=== PATIENT | male | born 1960 | race Caucasian/White ===

== ENCOUNTER 2017-04-24 03:07 | Inpatient (IN) | payer MEDICARE ==
[2017-04-24] VITALS (11 sets, daily range): BP systolic 90–132; BP diastolic 55–83; Ht 177.8 cm; Wt 93.2 kg
[~2017-04-24] VITALS: Ht 177.8 cm; Wt 93.2 kg
[~2017-04-24 03:07] MED LIST: AMITRIPTYLINE H50 MG; AMITRIPTYLINE100 MG PO; BUSPAR10 MG; FISH OIL 1,0001 CA1 PO; FLEXERIL10 MG; FLOMAX0.4 MG; FLOMAX0.4 MG PO; FLUTICASONE PRO16 GM NASAL; IPRAT-ALBUT 0.5-3 ML UPD; OMEPRAZOLE20 M1 PO; OXYCONTIN15 MG PO; PHENERGAN25 MG RC; PRAVACHOL40 MG PO; PROTONIX40 MG; PULMICORT180 MCG/AE INH; RYBIX ODT50 MG PO; SYNTHROID50 MCG PO; TESTOSTERONE INJ; VALIUM5 MG PO; VENTOLIN HFA18 GM INH; WELLBUTRIN SR150 MG
[2017-04-24 03:45] LABS: BASOPHILS 0.2 % (0-2); EOSINOPHILS 4.1 % (0-7); HEMOGLOBIN 11.1 g/dL (13.5-17.5); IMMATURE GRANULOCYTES 0.1 % (0-5); MCH 27.6 pg (26.0-34.0); MCHC 30.8 g/dL (31.0-37.0); MCV 89.6 fL (80.0-100.0); MEAN PLATELET VOLUME 9.3 fL (7.4-10.4); MONOCYTES 5.5 % (2-11); NEUTROPHILS 79.1 % (40-80); PLATELET COUNT 272 10x3/uL (130-400); RBC 4.02 10x6/uL (4.20-6.10); RDW 14.3 % (11.5-14.5); WBC 10.1 10x3/uL (4.8-10.8)
[2017-04-24 04:01] LABS: ALBUMIN 3.4 g/dL (3.4-5.0); ALKALINE PHOSPHATASE 99 U/L (46-116); ALT (SGPT) 18 U/L (10-68); BILIRUBIN - TOTAL 0.17 mg/dL (0.2-1.3); CALC OSMOLALITY 275 mosm/kg (275-300); CALCIUM 8.9 mg/dL (8.5-10.1); CARBON DIOXIDE 31.9 mmol/L (21.0-32.0); CHLORIDE - SERUM 99 mmol/L (98-107); CREATININE - SERUM 1.1 mg/dL (0.6-1.3); GLUCOSE 98 mg/dL (74-106); POTASSIUM - SERUM 4.1 mmol/L (3.5-5.1); PROTEIN - SERUM 7.4 g/dL (6.4-8.2); SODIUM 137 mmol/L (136-145); UREA NITROGEN 19 mg/dL (7-18); eGFR NON AFRICAN AMERICAN 73 mL/min (90-120)
[2017-04-24 04:05] LABS: CREATINE KINASE 84 UL (21-232); T4 THYROXIN - FREE 1.02 ng/dL (0.76-1.46); T4 THYROXINE 7.8 ug/dL (4.7-13.3)
[2017-04-24 04:07] LABS: TROPONIN-I < 0.017 ng/mL (0.000-0.060)
[2017-04-24 05:24] LABS: APTT 24.8 SECONDS (22.8-39.4)
--- NOTE | 2017-04-24 07:30 | NUR ---
AWAKE AND ALERT. ORIENTED X3. C/O LEFT LEG. WILL MONITOR. LUNGS ARE CLEAR BILATERALLY, NO COUGH NOTED. SKIN IS INTACT WITHOUT REDNESS. NEURO CHECK TO LEFT LEG WNL. IV TO LEFT AC IS PATENT WITHOUT REDNESS AT INSERTION SITE. DENIES NEEDS. CONSENTS COMPLETED AND DISCUSSED REASON FOR NPO STATUS. ALL QUESTIONS ANSWERED.
--- NOTE | 2017-04-24 08:00 | NUR ---
OFF UNIT VIA BED FOR CT.
--- NOTE | 2017-04-24 08:20 | NUR ---
RETURNED FROM CT SCAN. REQUESTED AND GIVEN 1MG DILAUDID SLOW IVP FOR C/O LEFT LEG PAIN LEVEL 10. WILL MONITOR.
--- NOTE | 2017-04-24 13:01 | NUR ---
REQUESTED AND GIVEN 1MG DILAUDID SLOW IVP FOR C/O LEFT LEG PAIN LEVEL 7. WILL MONITOR.
--- NOTE | 2017-04-24 15:10 | NUR ---
OFF UNIT VIA BED FOR SURGERY.
[2017-04-25] VITALS: BP 95/56
[2017-04-25 04:00] VITALS: BP 92/53
[2017-04-25 05:45] LABS: BASOPHILS 0.2 % (0-2); EOSINOPHILS 4.1 % (0-7); HEMATOCRIT 29.2 % (42.0-54.0); HEMOGLOBIN 8.9 g/dL (13.5-17.5); IMMATURE GRANULOCYTES 0.1 % (0-5); LYMPHOCYTES 7.7 % (15-50); MCH 27.5 pg (26.0-34.0); MCHC 30.5 g/dL (31.0-37.0); MCV 90.1 fL (80.0-100.0); MEAN PLATELET VOLUME 9.7 fL (7.4-10.4); MONOCYTES 10.6 % (2-11); NEUTROPHILS 77.3 % (40-80); PLATELET COUNT 260 10x3/uL (130-400); RBC 3.24 10x6/uL (4.20-6.10); RDW 15.1 % (11.5-14.5); WBC 9.2 10x3/uL (4.8-10.8)
[2017-04-25 06:11] LABS: ALBUMIN 2.6 g/dL (3.4-5.0); ALKALINE PHOSPHATASE 72 U/L (46-116); BILIRUBIN - TOTAL 0.45 mg/dL (0.2-1.3); CALCIUM 7.7 mg/dL (8.5-10.1); CARBON DIOXIDE 32.1 mmol/L (21.0-32.0); CHLORIDE - SERUM 104 mmol/L (98-107); CREATININE - SERUM 0.9 mg/dL (0.6-1.3); GLUCOSE 106 mg/dL (74-106); POTASSIUM - SERUM 4.1 mmol/L (3.5-5.1); SODIUM 139 mmol/L (136-145); eGFR NON AFRICAN AMERICAN > 90 mL/min (90-120)
[2017-04-25 06:22] LABS: ALT (SGPT) 12 U/L (10-68); CALC OSMOLALITY 277 mosm/kg (275-300); UREA NITROGEN 12 mg/dL (7-18)
--- NOTE | 2017-04-25 07:30 | NUR ---
AWAKE AND ALERT. ORIENTED X3. NO C/O AT THIS TIME. LUNGS ARE CLEAR BILATERALLY,NO COUGH NOTED. SKIN IS INTACT WITHOUT REDNESS EXCEPT INCISIONS TO LEFT LEG WHICH HAVE DRY INTACT DRESSINGS IN PLACE. IV TO RIGHT AC IS PATENET WITHOUT REDNESS AT ISNERTION SITE. DENIES NEEDS.
[2017-04-25 09:20] VITALS: BP 90/52
--- NOTE | 2017-04-25 09:45 | NUR ---
REQUESTED AND GIVEN 10MG OXY IR PO FOR C/O LEFT LEG PAIN LEVEL 9. WILL MONITOR.
--- NOTE | 2017-04-25 12:00 | NUR ---
REQUESTED AND GIVEN 50 MG ATARAX PO FOR C/O LEFT LEG PAIN LEVEL 7. WILL MONIOTR. LUNCH SERVED IN ROOM. FEEDS SELF.
[2017-04-25 13:06] VITALS: BP 95/56
--- NOTE | 2017-04-25 13:55 | NUR ---
REQUESTED AND GIVEN ONE OXY IR PO FOR C/O PAIN LEVEL 7 PRIOR TO THERAPY. WILL MONITOR.
--- NOTE | 2017-04-25 15:45 | NUR ---
RESTING QUIETLY IN BED. DENIES NEEDS. REPORTS VERY LITTLE PAIN RELIEF FROM OXY IR. WILL CONTINUE TO MONITOR.
[2017-04-25 16:55] VITALS: BP 109/62
--- NOTE | 2017-04-25 18:30 | NUR ---
REFUSED TO EAT SUPPER. STATED HE WAS HURING TO BAD TO EAT. GIVEN 1GM TYLENOL IV FOR PAIN MANAGEMENT. WILL MONITOR.
--- NOTE | 2017-04-25 18:39 | NUR ---
REQUESTED AND GIVNE 5MG OXY IR PO FOR C/O LEFT LEG PAIN LEVEL . WILL MONITOR.
[2017-04-25 20:00] VITALS: BP 105/57
--- NOTE | 2017-04-25 20:10 | NUR ---
PATIENT RESTING IN BED AND REQUESTED PAIN MEDS WHEN DUE. PT DENIES OTHER NEEDS AT THIS TIME. BED IN LOWEST POSITION AND CALL LIGHT WITHIN REACH. ENCOURAGED THE PATIENT TO CALL IF HE HAS NEEDS.
--- NOTE | 2017-04-25 20:16 | NUR ---
PATIENT STATED HE TAKES 200MG OF ELAVIL AT HOME
[2017-04-26] VITALS: BP 96/53
[2017-04-26 04:00] VITALS: BP 106/57
[2017-04-26 05:24] LABS: BASOPHILS 0.2 % (0-2); EOSINOPHILS 3.3 % (0-7); HEMATOCRIT 28.6 % (42.0-54.0); HEMOGLOBIN 8.8 g/dL (13.5-17.5); IMMATURE GRANULOCYTES 0.1 % (0-5); LYMPHOCYTES 10.5 % (15-50); MCH 27.6 pg (26.0-34.0); MCHC 30.8 g/dL (31.0-37.0); MCV 89.7 fL (80.0-100.0); MEAN PLATELET VOLUME 9.7 fL (7.4-10.4); MONOCYTES 10.5 % (2-11); NEUTROPHILS 75.4 % (40-80); PLATELET COUNT 259 10x3/uL (130-400); RBC 3.19 10x6/uL (4.20-6.10); WBC 8.2 10x3/uL (4.8-10.8)
[2017-04-26 05:34] LABS: APTT 35.7 SECONDS (22.8-39.4); INR 1.3 (0.85-1.17)
[2017-04-26 05:50] LABS: CALC OSMOLALITY 282 mosm/kg (275-300); CALCIUM 8.1 mg/dL (8.5-10.1); CARBON DIOXIDE 33.5 mmol/L (21.0-32.0); CHLORIDE - SERUM 103 mmol/L (98-107); CREATININE - SERUM 0.8 mg/dL (0.6-1.3); POTASSIUM - SERUM 3.6 mmol/L (3.5-5.1); SODIUM 141 mmol/L (136-145); UREA NITROGEN 10 mg/dL (7-18); eGFR NON AFRICAN AMERICAN > 90 mL/min (90-120)
[2017-04-26 06:00] LABS: GLUCOSE 161 mg/dL (74-106)
[2017-04-26 08:14] VITALS: BP 98/57
--- NOTE | 2017-04-26 08:38 | OP ---
PATIENT NAME: HERB MOTA MEDICAL RECORD: [id number] :58 LOCATION:[facility]2212 ADMISSION DATE:04/24/17 SURGEON: MARCELINO KNOX DO DATE OF OPERATION: 04/24/2017 PROCEDURE PERFORMED: Left tibia intramedullary nailing. PREOPERATIVE DIAGNOSIS: Closed left tibia and fibula fracture. POSTOPERATIVE DIAGNOSIS: Closed left tibia and fibula fracture. INDICATIONS: Mr. Mota is a 56-year-old male who got up and had syncopal episode and twisted his left leg last night and sustained a distal tibial shaft as well as a distal fibula fracture. He was taken to the ER and I was consulted to see him. He was put on the surgery schedule for today. The risks and benefits of the procedure were discussed with him as well as the surgery itself was explained to him. He consented to the procedure. DESCRIPTION OF PROCEDURE: The patient was taken to the operative suite, laid in supine position, given 2 grams of Ancef preoperatively and the left lower extremity was prepped and draped in sterile fashion. Once this was done, a timeout was performed. Everyone was in agreeance to correct side, site, and patient and then the procedure commenced. The reduction of the fracture was attempted with clamps, which was achieved, but did not hold and then we started at the knee, incision made just inferior to the patella down to the patellar tendon. The peritenon was divided and off the patellar tendon. The patellar tendon was incised and Weitlaner was used to open it up. Some of the fat pad was removed at that time and the starting point was gained on the proximal tibia. Once a good starting point was made, the opening reamer was entered into the tibia and then the guidepin was placed on the tibial shaft as the reduction was held with the knee in flexion with a triangle as well. This was done and then reaming commenced with a 9 up to an 11.5 and a 10.5 nail by 360 mm was passed from the tibia. This was all done under x-ray confirming that the reduction was not lost in the coronal and sagittal planes. Once this was done, attention was then drawn to the proximal tibia where the 2 locking screws were placed from lateral to medial. Then, the jig was removed and set screw was set prior to the jig removing. Then, the jig was removed and the triangle was removed and a bump was placed under the leg and then perfect circles were made distally and 2 screws were placed from medial to lateral distally in the tibia; one was 38, the other was 44. Once this was completed, the wounds were irrigated thoroughly and the knee joint was irrigated with over 300 mL of normal saline and then the patellar tendon was closed with 0 Vicryl in a running locking stitch as well as the peritenon with inverted running stitch. Once this was completed, the skin was closed with 2-0 Vicryl in an inverted interrupted fashion and the skin was closed with 4-0 Monocryl in a horizontal mattress fashion. The locking screw sites were closed with 2-0 Vicryl in an inverted interrupted fashion and 4-0 Monocryl in a horizontal mattress. The total blood loss approximately 300 mL. A splint was then applied to the left lower extremity prior to the patient awakening. The patient was then awakened and taken to recovery in stable condition. TRANSINT:[id number] Voice Confirmation ID: [id number] DOCUMENT ID: [id number] OPERATIVE REPORT [id number] HERB MOTA MICHAEL D, DO at 0838 CC: [id number] DICTATION DATE: 04/24/171851 INVENTORY CHECKER: 04/24/17 2304 ADM IN [address] [place] [address]
[2017-04-26] MEDS ORDERED: ATARAX 25 MG TA25 MG PO (08:45)
[2017-04-26] MEDS ORDERED: OXYCODONE HCL5 MG PO (08:45)
[2017-04-26] MEDS ORDERED: ELIQUIS2.5 MG PO (08:45)
[2017-04-26 12:13] VITALS: BP 91/70
--- NOTE | 2017-04-26 13:54 | NUR ---
Patient Name: HERB DENNEY Admission Status: ER Accout number: [id number] Admission Date: 04-24-2017 : 1960 Admission Diagnosis:OTH FRACTURE OF LOWER END OF LEFT TIBIA, INIT FOR CLOS Attending: Tashi Collins Current LOS: 2 Anticipated DC Date: 04-26-2017 Planned Disposition: Home Primary Insurance: MEDICARE A & B Discharge Planning Comments: PATIENT FOR DISCHARGE TO HOME TODAY. DR VILLARREAL SPOKE WITH THE CURRENCY EXAMINER. DISCUSSED NASAL O2 AT 3/4 LITERS, PULSE 113-124 AND TEMP 100 AT 1655 04/25/17. FEELS HE CAN BE SAFELY DISCHARGED TO HOME. STATED HE WOULD ORDER H/H TO FOLLOW. PATIENT HAS NASAL O2 FROM [facility] AT HOME. HIS O2 IS USUALLY AT 3/L. DR VILLARREAL ALSO ORDERED A WALKER PER PHYSICAL THERAPY'S RECOMMENDATION. KENDALL CALLED [facility]. SPOKE WITH THE ON-CALL DAR. FAXED MD ORDER, FACE SHEET AND OP REPORT. WALKER TO BE DELIVERED TO THE PATIENT'S ROOM. CM SPOKE WITH THE PATIENT. HE REFUSED HOME HEALTH AT THIS TIME. HE STATES HE WILL BE STAYING WITH FRIENDS FOR A FEW DAYS. CM DISCUSSED HOW TO OBTAIN HOME HEALTH IF HE CHANGES HIS MIND. WALKER DELIVERED TO THE BEDSIDE. PATIENT IS IN PAIN. WANTED TO SPEAK WITH HIS NURSE. DOES NOT WISH TO CONTINUE ASSESSMENT AT THIS TIME. Etl [employer] Developer: Blanche Mack
--- NOTE | 2017-04-26 14:28 | DS ---
PATIENT:HERB DENNEY :58 MEDICAL RECORD: [id number] DISCHARGE SUMMARY ADMISSION DATE: 04/24/17 DISCHARGE DATE: DATE OF ADMISSION: 04/24/2017 DATE OF DISCHARGE: 04/26/2017 ADMISSION DIAGNOSIS: Closed left tib-fib fracture. DISCHARGE DIAGNOSIS: Closed left tib-fib fracture. CONSULTS: Luis Alfredo Simeon DO, orthopedics. PROCEDURES: Open reduction and internal fixation of left tibia. HOSPITAL COURSE: The patient had an uneventful hospital course. He was admitted through the Emergency Room and taken to surgery. He has history of underlying COPD with supportive care for this. He has been cleared for discharge with boot and walker, toe touching by orthopedics. The patient is anxious to go home. social media manager consulted for home health and walker. PHYSICAL EXAMINATION: VITAL SIGNS: On discharge, temperature 98.1, heart rate 119, respirations 20, O2 sat is 93%, and blood pressure 98/57. GENERAL: Alert, oriented, and anxious for discharge. HEART: Regular. LUNGS: Clear. ABDOMEN: Soft. EXTREMITIES: Present times 4. NEUROLOGIC: Intact. SKIN: Warm and dry. No rash. DISCHARGE INSTRUCTIONS: The patient will follow up with Dr. Collins within the next 10 days. Follow up with orthopedics as scheduled. MEDICATIONS: Per med rec. TRANSINT:[id number] Voice Confirmation ID: [id number] DOCUMENT ID: [id number] CONSTANCE VILLARREAL DO at 1428 CC: [id number] DICTATION DATE: 04/26/17 1209 ORTHOPHOTO TECH/DRAFTSMAN: 04/26/17 1231 ADM IN [id number] [place] [address]
--- NOTE | 2017-04-26 17:55 | NUR ---
DISCHARGE INSTRUCTIONS DISCUSSED AT THIS TIME. FAMILY FRIENDS, MORGAN TIRADO, AT BEDSIDE. NO QUESTIONS OR CONCERNS VOICED. PT UNABLE TO SIGN DISCHARGE PAPERS. VERBAL CONSENT GIVEN TO FAMILY FRIEND, MORGAN TIRADO, TO SIGN. PIV TO L AC DC'D WITH CATHETER INTACT. PRESSURE AND DRESSING APPLIED. ESCORTED OUT VIA WC.
== END 2017-04-26 17:56 | disposition home or self-care (01) | DRG 494 ==
LOC: D.ER 03:07 → D.MS 05:03
PROVIDERS: Emergency Medicine; Family Medicine; Orthopaedic Surgery; ADMIT Family Medicine
PROC: 0QSH06Z Reposition Left Tibia with Intramedullary Internal Fixation Device, Open Approach (ICD-10-PCS; principal; 2017-04-24 11:30)
DX: S82.392A Other fracture of lower end of left tibia, initial encounter for closed fracture (principal); S82.302A Unspecified fracture of lower end of left tibia, initial encounter for closed fracture; W06.XXXA Fall from bed, initial encounter; J44.9 Chronic obstructive pulmonary disease, unspecified; F41.8 Other specified anxiety disorders; G89.29 Other chronic pain

== ENCOUNTER 2017-05-14 15:02 | Inpatient (IN) | payer MEDICARE ==
[~2017-05-14] VITALS: Ht 177.8 cm; Wt 85.6 kg
[~2017-05-14 15:02] MED LIST changes: +ATARAX 25 MG TA25 MG PO; +ELIQUIS2.5 MG PO; +OXYCODONE HCL5 MG PO
[2017-05-14 15:43] LABS: BASOPHILS 0.2 % (0-2); EOSINOPHILS 0.3 % (0-7); HEMATOCRIT 30.2 % (42.0-54.0); HEMOGLOBIN 8.7 g/dL (13.5-17.5); IMMATURE GRANULOCYTES 0.2 % (0-5); MCHC 28.8 g/dL (31.0-37.0); MCV 90.1 fL (80.0-100.0); MEAN PLATELET VOLUME 9.4 fL (7.4-10.4); MONOCYTES 5.8 % (2-11); NEUTROPHILS 89.5 % (40-80); PLATELET COUNT 507 10x3/uL (130-400); RBC 3.35 10x6/uL (4.20-6.10); RDW 16.9 % (11.5-14.5); WBC 8.9 10x3/uL (4.8-10.8)
[2017-05-14 15:54] LABS: APTT 31.6 SECONDS (22.8-39.4); INR 1.27 (0.85-1.17); PROTIME 15.4 SECONDS (11.6-15.0)
[2017-05-14 15:58] LABS: ALBUMIN 2.5 g/dL (3.4-5.0); ALKALINE PHOSPHATASE 97 U/L (46-116); ALT (SGPT) 18 U/L (10-68); BILIRUBIN - TOTAL 0.39 mg/dL (0.2-1.3); CALC OSMOLALITY 272 mosm/kg (275-300); CALCIUM 8.6 mg/dL (8.5-10.1); CARBON DIOXIDE 36.6 mmol/L (21.0-32.0); CHLORIDE - SERUM 98 mmol/L (98-107); CREATININE - SERUM 0.9 mg/dL (0.6-1.3); POTASSIUM - SERUM 4.5 mmol/L (3.5-5.1); PROTEIN - SERUM 6.9 g/dL (6.4-8.2); SODIUM 136 mmol/L (136-145); UREA NITROGEN 15 mg/dL (7-18); eGFR NON AFRICAN AMERICAN > 90 mL/min (90-120)
[2017-05-14 15:59] LABS: GLUCOSE 101 mg/dL (74-106)
[2017-05-14 16:00] LABS: TROPONIN-I < 0.017 ng/mL (0.000-0.060)
--- NOTE | 2017-05-14 18:23 | NUR ---
REPORT REC'D FROM ER. ROOM READY, WILL AWAIT PTS ARRIVAL.
[2017-05-14 20:48] VITALS: BP 101/62
--- NOTE | 2017-05-14 23:58 | NUR ---
PT ASSISTED TO RESTROOM. UPON RETURN FROM RESTROOM PT COMPLAINED OF SOB. PULSE OX WAS 73 PULSE WAS 121. O2 BUMPED UP TO 7L/MIN O2 SATURATION INCREASED TO 84. PT PLACED ON OXIMIZER AT 6L/MIN PT SATURATION INCREASED TO 95. PT TAKEN OFF OXIMIZER AND CANNULA REPLACED. 02 SATURATION REMAINED AT 95% ON 4L/MIN.
[2017-05-15 00:33] VITALS: BP 103/64
--- NOTE | 2017-05-15 03:18 | NUR ---
COMMODITY DIRECTOR AT BEDSIDE TO OBTAIN VITALS, CALL LIGHT IN REACH. WILL CONTINUE WITH PLAN OF CARE.
--- NOTE | 2017-05-15 03:56 | NUR ---
PT IN BED RESTING. WILL CONT TO MONITOR
[2017-05-15 04:33] VITALS: BP 120/81
[2017-05-15 05:22] LABS: BASOPHILS 0.3 % (0-2); EOSINOPHILS 2.9 % (0-7); HEMATOCRIT 28.4 % (42.0-54.0); IMMATURE GRANULOCYTES 0.1 % (0-5); LYMPHOCYTES 10.7 % (15-50); MCH 25.4 pg (26.0-34.0); MCHC 28.2 g/dL (31.0-37.0); MCV 90.2 fL (80.0-100.0); MEAN PLATELET VOLUME 9.5 fL (7.4-10.4); MONOCYTES 11.2 % (2-11); NEUTROPHILS 74.8 % (40-80); PLATELET COUNT 528 10x3/uL (130-400); RBC 3.15 10x6/uL (4.20-6.10); RDW 17.2 % (11.5-14.5); WBC 9.7 10x3/uL (4.8-10.8)
[2017-05-15 05:44] LABS: ALBUMIN 2.4 g/dL (3.4-5.0); ALKALINE PHOSPHATASE 96 U/L (46-116); ALT (SGPT) 20 U/L (10-68); CALC OSMOLALITY 278 mosm/kg (275-300); CALCIUM 8.5 mg/dL (8.5-10.1); CARBON DIOXIDE 37.3 mmol/L (21.0-32.0); CHLORIDE - SERUM 99 mmol/L (98-107); CKMB 0.7 U/L (0.0-3.6); GLUCOSE 97 mg/dL (74-106); MAGNESIUM - SERUM 1.9 mg/dL (1.8-2.4); PHOSPHOROUS 3.5 mg/dL (2.5-4.9); PRO BNP 1027 pg/mL (0-125); PROTEIN - SERUM 6.6 g/dL (6.4-8.2); SODIUM 140 mmol/L (136-145); TROPONIN-I < 0.017 ng/mL (0.000-0.060); UREA NITROGEN 13 mg/dL (7-18); eGFR NON AFRICAN AMERICAN 81 mL/min (90-120)
--- NOTE | 2017-05-15 07:44 | NUR ---
AM ROUNDS COMPLETED. INTRODUCED MYSELF TO PT PRIMARY RN FOR TODAYS SHIFT. PT A&O SITTING UP IN BED RESTING QUIETLY. PT DOES HAVE LABORED BREATHING ALONG WITH SOB. PT CURRENTLY ON OXYMIZER @4L WITH PULSE OX OF 94% LUNGS SOUNDS ARE CTA THROUGHOUT THE RIGHT LOBES, HOWEVER LEFT SIDE HAVE MUFFLED SOUNDS AND FRICTION TYPE RUB SOUNDS NOTED. HEART SOUNDS S1S2 NOTED BUT SLIGHTLY MUFFLED WELL. TELEMETRY RUNNING ST AT 109. PT C/O CONSTANT L.FOOT THROBBING PAINS FROM RECENT SX ALONG WITH CHRONIC BACK PAIN AND STATES HE HAS A PAIN CONTRACT BUT CURRENT PAIN MEDICATIONS ARE NOT RELIEVING IT. OFFERED ICE PACK FOR IN BETWEEN BREAK-THROUGH PAIN BUT PT DECLINED AND STATES HE HAS TRIED IT AND IS DOESNT HELP. PERIPHERAL PULSES PALP AND STRONG, L.FOOT COLOR WHITE METAL CASTER THAN R. BUT NO S/S OF CIRCULATION IMPAIRED. TOE NAILS REVEAL CLUBBING HOWEVER PT IS A CYSTIC FIBROSIS PT AND HAS CHRONIC LUNGS ISSUES. PT RESTING IN BED AND DENIES ANY CURRENT NEEDS AT THIS TIME. CL IN REACH, BED IN LOWEST, SIDE RAILS X2. WILL CPOC.
[2017-05-15 08:33] VITALS: BP 104/71
--- NOTE | 2017-05-15 09:16 | NUR ---
PT NEEDING TO USE URINAL AND VOIDED 225ML VERY PALE YELLOW. PT BECAME SOB AFTER AND PULSE OX DROPPED TO 87% DISCUSSED SLOW DEEP BREATHING AND PT IS NOW UP TO 97% NO FURTHER NEEDS AT THIS TIME. WILL CPOC.
--- NOTE | 2017-05-15 11:53 | NUR ---
PT RESTING QUIETLY LYING ON HIS R.SIDE. AND STRATEGIC PLANNER AT BEDSIDE TO PERFORM TEST. NO CURRENT NEEDS. WILL CPOC.
--- NOTE | 2017-05-15 13:24 | NUR ---
PROVIDED PT WITH NEW MEDS LASIX AND POTASSIUM AND NEW TEACHING PROVIDED TO PT. PT VERBALIZED UNDERSTANDING AND DENIES ANY FURTHER NEEDS AT THIS TIME. WILL CTM.
[2017-05-15 13:29] LABS: C-REACTIVE PROTEIN 4.9 mg/dL (0.0-0.9); THYROID STIMULATING HORMONE 3.68 uIU/mL (0.36-3.74)
--- NOTE | 2017-05-15 14:23 | NUR ---
PAIN MEDICATION GIVEN 30MINS EARLY PT HAS DEMANDED AND CRIED OUT STATING HE IS IN THE WORST PAIN EVER TO HIS LEFT FOOT. STILL WAITING ON STOOL SPECIMEN WILL CTM.
--- NOTE | 2017-05-15 15:00 | HP ---
PATIENT: HERB DENNEY MEDICAL RECORD: [id number] ACCOUNT: [id number] LOCATION:.[facility]2128 : [birth year] ADMISSION DATE: 05/14/17 HISTORY AND PHYSICAL EXAMINATION HISTORY OF PRESENT ILLNESS: A 57-year-old male sent to the Emergency Room by Dr. Johnston from his pulmonology office for low O2 sats, will need a ER evaluation with CT scan for possible pulmonary emboli. The patient has COPD, is on 2.5 liters of oxygen at home. His sats dropped significantly upon evaluation in the pulmonology office, was sent to the ER. PAST MEDICAL HISTORY: Recent fracture from a fall, status post orthopedic open reduction internal fixation, also has chronic back pain at home. 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 Former history of drug abuse. Also history of COPD, frequent falls, hypertension and hyperlipidemia. ALLERGIES: REPORTED CODEINE. CURRENT MEDICATIONS: Listed as amitriptyline 150 mg at bedtime; atorvastatin 80 mg daily; Flonase nasal spray; oxycodone; Pulmicort Flexhaler; Synthroid 100 mcg daily; Ventolin inhaler. REVIEW OF SYSTEMS: The patient reports progressive shortness of breath over the past week. At appointment with Dr. Johnston today he was feeling worse and advanced as noted above. FAMILY HISTORY: Noncontributory. PHYSICAL EXAMINATION: VITAL SIGNS: Temp 97.1, heart rate 129, respirations 26, O2 sats 93% on 4 liters, blood pressure 127/75. GENERAL: He is alert, oriented, no acute distress with supplemental oxygen. HEENT: Normocephalic, atraumatic. Eyes; pupils are equal, round, reactive to light and accommodation. Extraocular muscles are intact. Conjunctivae is not injected. Ears; canals patent, TMs are intact. Nose; nares patent without drainage. Throat; no erythema, no exudates. NECK: Supple. No lymphadenopathy, no JVD. HEART: Regular rate and rhythm. No S3, S4. No appreciable rub. LUNGS: Breathing is nonlabored with supplemental O2. No rhonchi appreciated. No crackles appreciated. ABDOMEN: Soft, nontender. Bowel sounds in all 4 quadrants. EXTREMITIES: Present times 4. Trace edema. NEUROLOGIC: Cranial nerves II-XII grossly intact. No appreciable focal deficits. LABORATORY AND IMAGING: CTA of the chest, PE Protocol report shows a large pericardial effusion, new since previous exam. No evidence of pulmonary emboli. There was enlarged mediastinal lymph nodes. No significant change from prior, signs of bilateral pulmonary fibrosis, worsened since previous exam, most pronounced left lung. EKG shows sinus tachycardia, signs of left atrial enlargement, rate of 111, T-wave abnormalities. CBC; white count 8.9, hemoglobin 8.7, hematocrit 30.2, platelets 507. PT is 15.4, INR is 1.27. Chemistry shows sodium 136, potassium 4.5, chloride 98, bicarbonate 36.6, BUN 15, creatinine 0.9. HISTORY AND PHYSICAL [id number] HERB DENNEY ASSESSMENT AND PLAN: 1. Large pericardial effusion, changed from prior exam. Engagement Specialist consulted. Discussed case with Dr. Plascencia. Dr. Plascencia says he discussed the case with the radiologist who read the CT findings are not consistent with tamponade formation. We will obtain echocardiogram in the morning. The patient is placed on telemetry. We will hold his amitriptyline to avoid any additional proarrhythmic. Monitor vital signs. Supplemental O2. 2. Chronic opioid use from chronic back pain. We will continue opiates at a much lower dose to avoid signs of withdrawal, increased stress. 3. Repeat cardiac enzymes in a.m. 4. Chronic obstructive pulmonary disease. We will hold albuterol, change to Xopenex again to avoid arrythmic/proarrhythmic medications. Supportive care. TRANSINT:[id number] Voice Confirmation ID: [id number] DOCUMENT ID: [id number] CONSTANCE VILLARREAL DO at 1500 CC: [id number] DICTATION DATE: 05/14/172047 TRANSACTIONAL ATTORNEY: 05/14/172246 ADM IN [address] [place] [address]
[2017-05-15 16:22] VITALS: BP 117/64
--- NOTE | 2017-05-15 16:42 | NUR ---
OFFERED PTS SCDS ORDERED AND PT REFUSED STATES IT WILL HURT ENTIRELY TOO BAD AND THERES NO WAY. BLOOD CONSENTS OBTAINED AND PT VERBALIZED UNDERSTANDING OF BLOOD TRANSFUSION AND RISK FACTORS NO CURRENT NEEDS AT THIS TIME. CL IN REACH. WILL CPOC.
--- NOTE | 2017-05-15 18:51 | NUR ---
FINISHING ROUNDS COMPLETED. PT STATES HE HAD AN OKAY DAY BUT IS STILL CONSTANTLY IN PAIN. NO STOOL COLLECTED HE HASNT HAD ONE. TYPE AND CROSS COMPLETED BUT BLOOD IS NOT READY. WILL PASS ON TO NIGHTSHIFT.
[2017-05-15 20:59] VITALS: BP 125/69
[2017-05-16 01:13] VITALS: BP 116/63
--- NOTE | 2017-05-16 03:28 | NUR ---
1ST UNIT OF BLOOD INFUSING. VITALS SIGNS REMAIN STABLE. PT IN GOOD SPIRITS WITH NO ADVERSE REACTIONS NOTED. BLOOD ADMINISTERED BY THIS NURSE AND MONITORED BY MYRON WARD. CONTINUE SNUBBER'S PLAN OF CARE. WILL CONTINUE TO MONITOR.
--- NOTE | 2017-05-16 03:33 | NUR ---
PATIENT IS RECIEVING BLOOD . FIRST UNIT OF BLOOD IS INFUSING AND PATIENT IS TOLERATING WELL. VITAL SIGNS STABLE. TEMP 99.1 ORALLY CONSISTANTLY, TAKEN BEFORE ADMINISTRATION , EVERY 15 MIN FIRST HOUR , THEN Q 30 .
[2017-05-16 04:51] VITALS: BP 126/75
--- NOTE | 2017-05-16 05:06 | NUR ---
COMPLETED UNIT OF BLOOD AND LASIX ADMINISTERED. PREPARING TO ADMINISTER SECOND UNIT OF BLOOD. PATIENT IS SLIGHTLY DIAPHORETIC. HIS SKIN IS CLAMMY. REPORTS PAIN IN LEFT LEG.
--- NOTE | 2017-05-16 07:15 | NUR ---
pt resting quietly nad noted
--- NOTE | 2017-05-16 07:25 | NUR ---
ASSESSMENT COMPLETED. TELEMERTY SHOWS ST AT 108. LEFT AC SL, PATENT. O2 AT 4 L/M PER NC. PT IS TO HAVE BEDREST. LEFT FOOT WITH A OLD BREAK IN IT.2ND UNIT OF BLOOD FINISHED. WILL MONITOR
[2017-05-16 09:55] LABS: BASOPHILS 0 % (0-2); EOSINOPHILS 0 % (0-7); IMMATURE GRANULOCYTES 0.3 % (0-5); LYMPHOCYTES 2.7 % (15-50); MCH 27.2 pg (26.0-34.0); MEAN PLATELET VOLUME 9.4 fL (7.4-10.4); MONOCYTES 3.1 % (2-11); NEUTROPHILS 93.9 % (40-80); PLATELET COUNT 527 10x3/uL (130-400); RDW 16.4 % (11.5-14.5)
[2017-05-16 09:56] LABS: HEMATOCRIT 37.8 % (42.0-54.0); HEMOGLOBIN 11.7 g/dL (13.5-17.5); MCV 87.9 fL (80.0-100.0); WBC 13.6 10x3/uL (4.8-10.8)
[2017-05-16 10:11] LABS: ANION GAP 10.7 mmol/L (8-16); CALCIUM 9.3 mg/dL (8.5-10.1); CARBON DIOXIDE 35.7 mmol/L (21.0-32.0); CREATININE - SERUM 1.1 mg/dL (0.6-1.3); MAGNESIUM - SERUM 2.1 mg/dL (1.8-2.4); PHOSPHOROUS 4.1 mg/dL (2.5-4.9); POTASSIUM - SERUM 4.4 mmol/L (3.5-5.1)
[2017-05-16 15:49] VITALS: BP 95/53
--- NOTE | 2017-05-16 17:32 | NUR ---
LYING QUIETLY WITH EYES CLOSED. NO DISTRESS NOTED. TELEMERTY SHOWS SR
--- NOTE | 2017-05-16 19:42 | NUR ---
RESUMED CARE OF PT, LYING IN BED RESPIRATIONS EVEN AND UNLABORED ON 4LPM VIA NC. [address] ON TELEMETRY. LEFT AC SALINE LOCKED. REQUESTS PAIN MEDICATION AT THIS TIME. NO FURTHER NEEDS, CALL LIGHT IN REACH. WILL CONTINUE TO MONITOR. SEE NURSE ASSESMENT.
[2017-05-16 21:24] VITALS: BP 100/63
[2017-05-17] VITALS: BP 105/54
--- NOTE | 2017-05-17 03:13 | NUR ---
LYING IN BED WITH EYES CLOSED, CALL LIGHT IN REACH. WILL CONTINUE TO MONITOR.
[2017-05-17 04:00] VITALS: BP 95/53
[2017-05-17 05:22] LABS: BASOPHILS 0 % (0-2); EOSINOPHILS 0 % (0-7); HEMATOCRIT 39.5 % (42.0-54.0); HEMOGLOBIN 12.1 g/dL (13.5-17.5); IMMATURE GRANULOCYTES 0.2 % (0-5); LYMPHOCYTES 3.4 % (15-50); MCH 26.9 pg (26.0-34.0); MCHC 30.6 g/dL (31.0-37.0); MEAN PLATELET VOLUME 9.7 fL (7.4-10.4); MONOCYTES 3.2 % (2-11); NEUTROPHILS 93.2 % (40-80); PLATELET COUNT 555 10x3/uL (130-400); RBC 4.49 10x6/uL (4.20-6.10); RDW 16.6 % (11.5-14.5); WBC 16.2 10x3/uL (4.8-10.8)
[2017-05-17 05:38] LABS: ALBUMIN 2.6 g/dL (3.4-5.0); ALKALINE PHOSPHATASE 101 U/L (46-116); ALT (SGPT) 24 U/L (10-68); BILIRUBIN - TOTAL 0.61 mg/dL (0.2-1.3); CALC OSMOLALITY 282 mosm/kg (275-300); CALCIUM 9.1 mg/dL (8.5-10.1); CHLORIDE - SERUM 99 mmol/L (98-107); CREATININE - SERUM 0.9 mg/dL (0.6-1.3); GLUCOSE 134 mg/dL (74-106); POTASSIUM - SERUM 4.4 mmol/L (3.5-5.1); PROTEIN - SERUM 7.3 g/dL (6.4-8.2); SODIUM 138 mmol/L (136-145); eGFR NON AFRICAN AMERICAN > 90 mL/min (90-120)
[2017-05-17 05:39] LABS: UREA NITROGEN 26 mg/dL (7-18)
--- NOTE | 2017-05-17 06:38 | NUR ---
NO CHANGES FROM PREVIOUS ASSESSMENT, CALL LIGHT IN REACH. WILL CONTINUE TO MONITOR.
--- NOTE | 2017-05-17 07:25 | NUR ---
SITTING UP IN BED RESPIRATORY AT BEDSIDE STARTING UPDRAFT. ALERT AND ORIENTED X4. DENIES ANY NEEDS OR PAIN. NO S/SX OF ACUTE DISTRESS NOTED. CALL LIGHT AND PERSONAL ITEMS WITHIN REACH, BED LOW, SR X2. WILL CONTINUE TO MONITOR
--- NOTE | 2017-05-17 07:30 | NUR ---
PT RESTING QUIETLY NAD NOTED
[2017-05-17 09:34] VITALS: BP 101/59
--- NOTE | 2017-05-17 10:04 | NUR ---
SITTING UP IN BED READING NEWSPAPER. DENIES ANY NEEDS. NO S/SX OF RESPIRATORY DISTRESS NOTED. ADMINISTERED MORNING MEDS WHOLE WITHOUT DIFFICULTY. CALL LIGHT WITHIN REACH, BED LOW. WILL CONTINUE TO MONITOR
[2017-05-17 12:16] VITALS: BP 109/64
--- NOTE | 2017-05-17 12:29 | NUR ---
SITTING UP IN BED EATING LUNCH. DENIES ANY NEEDS. NO S/SX OF ACUTE DISTRESS. CALL LIGHT AND PERSONAL ITEMS WITHIN REACH, BED LOW AND SR X3. WILL CONTINUE TO MONITOR
--- NOTE | 2017-05-17 14:18 | NUR ---
SITTING UP IN BED WATCHING TV. DENIES ANY NEEDS. NO S/SX OF ACUTE DISTRESS NOTED. CALL LIGHT WITHIN REACH, BED LOW, SR X2. WILL CONTINUE TO MONITOR
[2017-05-17 16:12] VITALS: BP 115/68
--- NOTE | 2017-05-17 17:03 | NUR ---
SITTING UP IN TALKING ON PHONE. DENIES ANY NEEDS OR PAIN. NO S/SX OF ACUTE DISTRESS NOTED. CALL LIGHT AND PERSONAL ITEMS WITHIN REACH, BED LOW AND SR X2. WILL CONTINUE TO MONITOR
--- NOTE | 2017-05-17 19:33 | NUR ---
RESUMED CARE OF PT, LYING IN BED RESPIRATIONS EVEN AND UNLABOREDON 4LPM VIA NC. [address] ON TELEMETRY. LEFT AC SALINE LOCKED. NO NEEDS AT THIS TIME, WILL CONTINUE TO MONTIOR. SEE NURSE ASSESSMENT.
[2017-05-17 21:46] VITALS: BP 122/60
--- NOTE | 2017-05-17 23:33 | NUR ---
PAIN PILL GIVEN FOR LEFT LEG PAIN. CALL LIGHT IN REACH.
[2017-05-18] VITALS: BP 117/72
--- NOTE | 2017-05-18 00:15 | NUR ---
107 UCAF ON TELEMETRY FOR A FEW SECONDS. CONVERTED RIGHT BACK TO [address] ST.
[2017-05-18 03:27] LABS: BASOPHILS 0 % (0-2); EOSINOPHILS 0 % (0-7); HEMOGLOBIN 12.2 g/dL (13.5-17.5); IMMATURE GRANULOCYTES 0.2 % (0-5); MCH 26.6 pg (26.0-34.0); MCHC 30.5 g/dL (31.0-37.0); MCV 87.3 fL (80.0-100.0); MEAN PLATELET VOLUME 9.4 fL (7.4-10.4); MONOCYTES 7.7 % (2-11); NEUTROPHILS 86.1 % (40-80); PLATELET COUNT 557 10x3/uL (130-400); RBC 4.58 10x6/uL (4.20-6.10); RDW 16.7 % (11.5-14.5); WBC 17.3 10x3/uL (4.8-10.8)
[2017-05-18 03:59] LABS: ALBUMIN 2.6 g/dL (3.4-5.0); ALKALINE PHOSPHATASE 97 U/L (46-116); ALT (SGPT) 28 U/L (10-68); BILIRUBIN - TOTAL 0.53 mg/dL (0.2-1.3); CALC OSMOLALITY 277 mosm/kg (275-300); CALCIUM 9.3 mg/dL (8.5-10.1); CARBON DIOXIDE 35.3 mmol/L (21.0-32.0); CHLORIDE - SERUM 99 mmol/L (98-107); GLUCOSE 125 mg/dL (74-106); POTASSIUM - SERUM 5.6 mmol/L (3.5-5.1); PROTEIN - SERUM 7.1 g/dL (6.4-8.2); SODIUM 136 mmol/L (136-145); UREA NITROGEN 26 mg/dL (7-18); eGFR NON AFRICAN AMERICAN 81 mL/min (90-120)
[2017-05-18 05:33] VITALS: BP 120/76
--- NOTE | 2017-05-18 05:56 | NUR ---
AM MEDS PASSED, PAIN PILL GIVEN FOR PAIN 7:10. WILL CONTINUE TO MONITOR. CALL LIGHT IN REACH.
--- NOTE | 2017-05-18 07:29 | NUR ---
PATIENT IN BED WATCHING TELEVISION AT THIS TIME. OXYGEN AT 4L PER MASK. PATIENT IS ALERT AND ORIENTED X3 AND HAS COMPLAINTS THIS AM. NO SIGNS OF DISTRESS ARE NOTED. CALL LIGHT AND WATER ARE WITHIN REACH.
[2017-05-18 08:52] VITALS: BP 131/69
--- NOTE | 2017-05-18 09:51 | NUR ---
RESP UL ON . IV PATENT. CALL LIGHT IN REACH. WILL CONT. PLAN OF CARE.
[2017-05-18 12:39] VITALS: BP 108/69
[2017-05-18 13:16] VITALS: Ht 177.8 cm; Wt 85.6 kg
--- NOTE | 2017-05-18 15:21 | NUR ---
RATIONALE FOR SCD'S EXPLAINED. PATIENT REFUSED SCDS AT THIS TIME AND WISHES TO WEAR THEM IN THE EVENINGS AND NIGHT.
[2017-05-18 16:27] VITALS: BP 100/56
--- NOTE | 2017-05-18 17:55 | NUR ---
PATIENT IS SITTING UP IN BED WATCHING TELEVISION AT THIS TIME. PAIN MEDICATION GIVEN AT 1730 FOR A PAIN LEVEL OF 7 ON A SCALE OF 0-10 IN HIS LEGS. NO OTHER COMPLAINTS OR CONCERNS VOICED AT THIS TIME. CALL LIGHT AND WATER WITHIN REACH. O2 AT 4L PER NASAL CANNULA.
--- NOTE | 2017-05-18 20:03 | NUR ---
PT UPSET THAT HE ASKED FOR ORANGE SLICES AND MILK "2 HOURS AGO". EXPLAINED TO PT THAT A CODE HAD OCCURRED AND THEN CHANGE OF SHIFT IMMEDIATELY BEHIND THAT. TOOK PT HIS MILK, BUT THERE WAS NOT ANY ORANGE SLICES TO BE FOUND. DID PROVIDE PT WITH A SANDWICH TRAY AND GRAPES AND THIS APPEARS TO PACIFY HIM. SEE ASSESSMENT. WILL MONITOR.
[2017-05-18 21:22] VITALS: BP 121/79
[2017-05-19 02:14] VITALS: BP 112/70
[2017-05-19 05:34] LABS: BASOPHILS 0 % (0-2); EOSINOPHILS 0 % (0-7); HEMATOCRIT 40.4 % (42.0-54.0); HEMOGLOBIN 12.5 g/dL (13.5-17.5); IMMATURE GRANULOCYTES 0.1 % (0-5); LYMPHOCYTES 8.4 % (15-50); MCH 26.9 pg (26.0-34.0); MCHC 30.9 g/dL (31.0-37.0); MCV 87.1 fL (80.0-100.0); MEAN PLATELET VOLUME 9.6 fL (7.4-10.4); MONOCYTES 9.1 % (2-11); NEUTROPHILS 82.4 % (40-80); PLATELET COUNT 549 10x3/uL (130-400); RBC 4.64 10x6/uL (4.20-6.10); RDW 16.9 % (11.5-14.5)
--- NOTE | 2017-05-19 05:40 | NUR ---
AWAKENED PT FOR AM SCHEDULED MEDS AND ALSO GAVE HIM HIS PAIN PILLS FOR HIS CHRONIC PAIN. NO OTHER NEEDS VOICED. CALL LIGHT IN REACH.
[2017-05-19 05:55] VITALS: BP 91/62
[2017-05-19 05:55] LABS: CALCIUM 8.9 mg/dL (8.5-10.1); CARBON DIOXIDE 32.2 mmol/L (21.0-32.0); CHLORIDE - SERUM 100 mmol/L (98-107); GLUCOSE 113 mg/dL (74-106); MAGNESIUM - SERUM 1.9 mg/dL (1.8-2.4); PHOSPHOROUS 5.1 mg/dL (2.5-4.9); SODIUM 137 mmol/L (136-145); eGFR NON AFRICAN AMERICAN 81 mL/min (90-120)
[2017-05-19 05:56] LABS: WBC 12.1 10x3/uL (4.8-10.8)
[2017-05-19 06:03] LABS: CALC OSMOLALITY 282 mosm/kg (275-300); POTASSIUM - SERUM 4.3 mmol/L (3.5-5.1); UREA NITROGEN 34 mg/dL (7-18)
--- NOTE | 2017-05-19 08:36 | NUR ---
AM ROUNDS - PT IS IN BED AND AWAKE AT THIS TIME. MONITOR SHOWING SB, HR 57. O2 AT 4L VIA NC. IV TO RIGHT HAND, SL. PRODUCTIVE COUGH. PT IS A&O. UP AD BIJAL. BED AT LOWEST POSITION. CALL CISNEROS IN USE/REACH. SIDE RAILS UP X2. WILL CONTINUE TO MONITOR
--- NOTE | 2017-05-19 08:55 | NUR ---
AM ROUNDS - PT IS AWAKE AT THIS TIME. O2 AT 4L VIA NC. IV TO LEFT AC, SL. MONITOR SHOWING ST, HR 104. BED AT LOWEST POSITION. CALL CISNEROS IN USE/REACH. SIDE RAILS UP X2. WILL CONTINUE TO MONITOR
[2017-05-19 09:48] VITALS: BP 127/46
[2017-05-19 12:26] VITALS: BP 105/69
--- NOTE | 2017-05-19 13:47 | NUR ---
PT IN BED FULLY DRESSED STATES HE IS GOING HOME. EXPLAINED TO PT THERE IS NO D/C ORDER IN THE COMPUTER AND DR. GONCALVES'S NOTE STATES TO CALL WITH ECHO RESULTS AND THEN DR. GONCALVES WILL REEVALUATE D/C. PT HAS NO HAD ECHO DONE. PT STATES HE IS GOING HOME AND DONT CARE WHAT THE DR SAID. WILL CONTINUE TO MONITOR
--- NOTE | 2017-05-19 14:40 | NUR ---
ECHO HAS BEEN COMPLETED. WAITING ON RESULTS/DR. ARROYO TO READ. PT IS BECOMING INPATIENT TELLING HIS VISITORS TO GET A WHEELCHAIR FOR HIM AND HE WILL LEAVE. EXPLAINED TO PT THAT DR. ARROYO HAS NOT READ THE RESULTS YET. TRYING TO REACH CARDIO NEURO TO SEE IF I CAN DO ANYTHING TO SPEED THE PROCESS UP. NO ANSWER IN CARIO NEURO. WILL CONTINUE TRYING
--- NOTE | 2017-05-19 15:07 | NUR ---
CALLED DR. GONCALVES'S OFFICE WITH ECHO REPORT. LUL LEROY, WAS UNABLE TO LOCATE THE RESULTS IN THE COMPUTER. FAXED RESULTS TO OFFICE. WILL CONTINUE TO MONITOR
[2017-05-19] MEDS ORDERED: LASIX40 MG PO (15:53)
[2017-05-19] MEDS ORDERED: STERAPRED DS 1210 MG PO (15:53)
--- NOTE | 2017-05-19 18:00 | NUR ---
D/C - WRITTEN AND VERBAL INSTRUCTIONS GIVEN TO PT. IV TO LEFT AC D/C, CATH TIP INTACT, 2X2 DRESSING APPLIED AND SECURED WITH TAPE, PT TOLERATED WELL. HEART MONITOR D/C AND RETURNED TO INTERIOR PAINTER. PT LEFT FLOOR VIA WHEELCHAIR WITH EMD SPECIAL EDUCATION TEACHER. WILL D/C
--- NOTE | 2017-05-19 18:01 | NUR ---
Patient Name: HERB DENNEY Admission Status: ER Accout number: [id number] Admission Date: 05-14-2017 : 1960 Admission Diagnosis:SHORTNESS OF BREATH Attending: CONSTANCE VILLARREAL Current LOS: 5 Anticipated DC Date: 05-19-2017 Planned Disposition: Home with Home Health Primary Insurance: MEDICARE A & B PLANNED EXTERNAL PROVIDER: [facility] Discharge Planning Comments: * Is the patient Alert and Oriented? Yes 0 * How many steps to enter\\exit or inside your home? 2 0 * PCP DR. GONCALVES 0 * Pharmacy [facility] 0 * Preadmission Environment Home Alone 0 * ADLs Independent 0 * Equipment Nebulizer Other Oxygen Walker 0 * Other Equipment OXYGEN PULSE OXIMETER [facility] - MEDICAL EQUIPMENT PROVIDER 0 * List name and contact numbers for known caregivers / representatives who currently or will assist patient after discharge: KIANNA DENNEY, OTHER, 0 * Community resources currently utilized None 0 * Please name any agencies selected above. NONE 0 * Additional services required to return to the preadmission environment? No 0 * Can the patient safely return to the preadmission environment? Yes 0 * Has this patient been hospitalized within the prior 30 days at any hospital? Yes 0 CM RECEIVED ORDER FOR PORTABLE OXYGEN CONCENTRATOR, MET WITH PT IN ROOM TO DISCUSS ORDER, DISCHARGE PLANNING AND NEEDS. PT REPORTS LIVING AT HOME INDEPENDENTLY AND ALONE. PT HAS HOME AND PORTABLE OXYGEN BOTTLES, NEBULIZER AND WALKER WELL PULSE OX FROM [facility]. PT WANTS A PORTABLE CONCENTRATOR TO GO ON A [place] WHERE HE WILL BE PARTICIPATING IN A [place] IN JUNE. PT REPORTS THAT HE TALKED TO [facility] AND STATES HE IS " IN THE PROCESS " OF GETTING ONE. PT HAS NO OUTSIDE SERVICES ASSISTING IN THE HOME. CM DISCUSSED AVAILABILITY OF HOME HEALTH, REHAB SERVICES AND MEDICAL EQUIPMENT. PT DENIES DISCHARGE NEEDS OTHER THAN PORTABLE OXYGEN CONCENTRATOR, REPORTS HE HAS ARRANGED TRANSPORTATION HOME SOON POSSIBLE TODAY. IMPORTANT MESSAGE FROM MEDICARE PROVIDED AND EXPLAINED. CM CALLED DAVID, , SPOKE TO ÁNGEL WHO REPORTS THAT BY MEDICARE GUIDELINES, PT WILL BE ELIGIBLE FOR A PORTABLE OXYGEN CONCENTRATOR FOR MEDICARE TO PAY FOR IT ON 06/27/2019. PT HAS OPTION OF RENTAL OF $150 PER WEEK AND DAVID NEEDS TWO WEEKS NOTICE TO RENT THE CONCENTRATOR. ÁNGEL ADVISED THAT THE PT MAY SPEAK TO THE [place] LINE AND SOME [place] LINES RENT OXYGEN ON BOARD THE SHIP. CM NOTIFIED PT AND DR. VILLELA OF ABOVE. CM RECEIVED DISCHARGE ORDER WITH ORDER FOR HOME HEALTH, MET WITH PT IN ROOM, DISCUSSED HOME HEALTH SERVICES. PT ACCEPTING OF HOME HEALTH AND CHOICE SIGNED FOR [facility]. CM CALLED DANYELL AT [phone], WAS ADVISED BY GARNETT FEEDER NURSE ALEXA THAT THE OFFICE WAS CLOSED AND SHE WILL CALL [facility] IN THE OFFICE IN THE MORNING TO ENSURE THEY RECEIVE THE FAX REFERRAL FOR HOME HEALTH ADMISSION. CM FAXED REFERRAL TO [facility] AT [phone]. PT NOTIFIED, ASKED FOR MEALS ON WHEELS PHONE NUMBER; CM PROVIDED PT WITH THE NUMBER TO THE LOCAL AREA AGENCY ON [address] THAT PROVIDES ME[employer] ON WHEELS SERVICES. PT DENIES FURTHER NEEDS, HIS FRIENDS ARE HERE TO TRANSPORT HOME. GRADUATE STUDIES DEAN NOTIFIED. Informatics Manager: Percy Mckeon
--- NOTE | 2017-05-26 12:15 | EC ---
PATIENT:HERB DENNEY DATE OF SERVICE: 05/14/17 SEX: M MEDICAL RECORD: [id number] DATE OF : [birth year] LOCATION:D. D.212 AGE OF PATIENT: 57 ADMISSION DATE: 05/14/17 REFERRING PHYSICIAN: INTERPRETING PHYSICIAN: GRETTA BENJAMIN MD ECHOCARDIOGRAM REPORT ECHO CHARGES 4 ECHO COMPLETE CLINICAL DIAGNOSIS: PERICARDIAL EFFUSION ECHOCARDIOGRAPHIC MEASUREMENTS (adult normal given) AC root (d.<3.7cm) 2.7 cm LV Septum d (<1.2 cm> 1.4 cm Valve Excursion 1.9 cm LV Septum (systole) 1.8 cm Left Atria (s.<4.0cm> 4.4 cm LVPW d(<1.2cm) 1.1 cm RV (d.<2.3cm) 3.1 cm LVPW (sytole) 1.8 cm LV diastole(<5.6CM) 4.9 cm MV E-F(>70mm/sec) cm LV systole 2.3 cm LVOT Diameter 2.0 cm MV exc.(>10mm) cm Est.ejection fraction (50-75%) % Pericardial Effusion Y DOPPLER: LVIT cm/sec A 104 cm/sec E 119 cm/sec LA cm/sec RVSP 52.2 mmHg LVOT 129 cm/sec AOP1/2T m/s Asc. Ao 166 cm/sec RVOT 77.0 cm/sec RA cm/sec PA 117 cm/sec AV Gradient Peak 11.0 mmHg AV Mean 5.6 mmHg AV Area 2.2 cm MV Gradient Peak 8.8 mmHg MV Mean 3.4 mmHg MV Area cm COMMENTS: Manager Fashion: [place] [employer] Field Technician: 4 Dr. Plascencia TAPE# PACS DATE OF SERVICE: 05/15/2017 ECHOCARDIOGRAM DATE OF SERVICE: 05/15/2017 FINDINGS: 1. Left ventricle chamber size is within normal limits. Left ventricular systolic function is normal. Overall ejection fraction estimated at 55%. 2. Left atrium is enlarged at 4.4 cm. Right atrium and right ventricular ECHOCARDIOGRAM REPORT [id number] HERB DENNEY chamber sizes are as well mildly dilated. 3. Valvular structures have normal structure and motion. 4. Doppler interrogation only reveals trace mitral regurgitation, mild tricuspid regurgitation, no other valvular insufficiency or stenosis; however, pulmonary systolic pressure is elevated estimated at 52 mmHg. 5. Small pericardial effusion is present. This is not hemodynamically significant. No evidence of left ventricular thrombus. TRANSINT:[id number] Voice Confirmation ID: [id number] DOCUMENT ID: [id number] GRETTA BENJAMIN MD at 1215 CC: [id number] DICTATION DATE: 05/19/17 1101 CANVAS MARKER: 05/19/17 1118 DIS IN 05/19/17 [id number] [place] [address]
--- NOTE | 2017-05-26 12:15 | EC ---
PATIENT:HERB DENNEY DATE OF SERVICE: 05/19/17 SEX: M MEDICAL RECORD: [id number] DATE OF : [birth year] LOCATION:D.M2 D.212 AGE OF PATIENT: 57 ADMISSION DATE: 05/14/17 REFERRING PHYSICIAN: INTERPRETING PHYSICIAN: GRETTA BENJAMIN MD ECHOCARDIOGRAM REPORT ECHO CHARGES 5 ECHO LIMITED CLINICAL DIAGNOSIS: LIMITED STUDY TO REASSESS PERICARDIAL EFFUSION ECHOCARDIOGRAPHIC MEASUREMENTS (adult normal given) AC root (d.<3.7cm) 3.8 cm LV Septum d (<1.2 cm> 1.05 cm Valve Excursion 1.8 cm LV Septum (systole) 1.7 cm Left Atria (s.<4.0cm> 4.2 cm LVPW d(<1.2cm) 1.5 cm RV (d.<2.3cm) 3.4 cm LVPW (sytole) 1.6 cm LV diastole(<5.6CM) 4.6 cm MV E-F(>70mm/sec) cm LV systole 3.1 cm LVOT Diameter 2.1 cm MV exc.(>10mm) cm Est.ejection fraction (50-75%) % Pericardial Effusion Y DOPPLER: LVIT cm/sec A 104 cm/sec E 119 cm/sec LA cm/sec RVSP 52.2 mmHg LVOT 129 cm/sec AOP1/2T m/s Asc. Ao 166 cm/sec RVOT 77.0 cm/sec RA cm/sec PA 117 cm/sec AV Gradient Peak 11.0 mmHg AV Mean 5.6 mmHg AV Area 2.2 cm MV Gradient Peak 8.8 mmHg MV Mean 3.4 mmHg MV Area cm COMMENTS: [employer] Custodian: 2 EVERETT HERNANDEZ Cable Engineer Outside Plant: [address] Dr. Plascencia TAPE# PACS DATE OF SERVICE: 05/19/2017 Limited echocardiogram to evaluate pericardial effusion. FINDINGS: 1. Left ventricle chamber size is within normal limits. Left ventricular systolic function is normal. Overall ejection fraction estimated at 60%. 2. Pericardial effusion is small, not hemodynamically significant at this time. Much improved over previous study. Definitely no evidence of pericardial tamponade. ECHOCARDIOGRAM REPORT [id number] HERB DENNEY TRANSINT:[id number] Voice Confirmation ID: [id number] DOCUMENT ID: [id number] GRETTA BENJAMIN MD at 1215 CC: [id number] DICTATION DATE: 05/19/17 1323 MARKETING AGENT: 05/19/17 1356 DIS IN 05/19/17 [address] [place] [address]
--- NOTE | 2017-06-11 14:06 | CN ---
PATIENT NAME:HERB MOTA MEDICAL RECORD: [id number] : 58 LOCATION:D.M2 D.2128 ADMIT DATE: 05/14/17 ACCOUNT: [id number] CONSULTING PHYSICIAN: HANH CHAMBERLAIN MD REFERRING PHYSICIAN: HUGO VILLARREAL DO DATE OF CONSULTATION: 05/15/2017 CONSULT REQUESTING PHYSICIAN: Dr. Hugo Villarreal. REASON FOR CONSULTATION: 1. Psrns-wq-xfteawg hypoxic respiratory failure. 2. Dyspnea on exertion. HISTORY OF PRESENT ILLNESS: Mr. Mota is a 57-year-old gentleman who has a history of idiopathic pulmonary fibrosis. The patient was recently hospitalized for fracture of the lower extremity. The patient was discharged home on the . The patient had worsening shortness of breath. He was seen in Dr. Johnston's office yesterday. His pulse ox was in the 70s. The patient was sent to the ER for further workup, suspecting pulmonary embolism. The CTA of the chest showed no pulmonary embolism. There were some worsening of the pulmonary fibrosis, but the patient had moderate left-sided pericardial effusion. The patient was seen by Dr. Plascencia. He started him on Lasix. He is feeling a little bit better now. There are no fever and chills. No night sweats. REVIEW OF SYSTEMS: As in history of present illness. PAST MEDICAL HISTORY: 1. Pulmonary fibrosis consistent with IPF. 2. Chronic hypoxic respiratory failure. 3. Chronic obstructive pulmonary disease. 4. Hypertension. 5. Hyperlipidemia. 6. Chronic backache. PAST SURGICAL HISTORY: He had recent orthopedic surgery with status post reduction and fixation of the left lower extremity. ALLERGIES: He is allergic to CODEINE, DEPAKOTE, and IBUPROFEN. He is also not tolerating OFEV. PRESENT MEDICATIONS: Green Plug was reviewed. PERSONAL SOCIAL HISTORY: The patient is an ex-smoker. He is a nondrinker. FAMILY HISTORY: Noncontributory. PHYSICAL EXAMINATION: GENERAL: Now, the patient is lying comfortably in bed. He is not in acute distress. VITAL SIGNS: The blood pressure is 104/71, pulse is 109, respirations 17, temperature 98.8, SPO2 97% on 4 liters nasal cannula. HEENT: Conjunctivae are pink. Sclerae nonicteric. NECK: Neck is supple. No JVD. CHEST: There are bilateral crackles. No wheezing. HEART: Rate and rhythm regular. Heart sounds are distant. There is no murmur. CONSULT REPORT [id number] HERB MOTA ABDOMEN: Abdomen is soft. Bowel sounds present. No hepatosplenomegaly. RECTAL: Deferred. EXTREMITIES: No cyanosis, no clubbing, no pedal edema. SKIN: The skin is warm, normal turgor. CENTRAL NERVOUS SYSTEM: The patient is awake and alert. There are no obvious cranial nerve abnormalities. The gait was not tested. LABORATORY DATA AND DIAGNOSTIC STUDIES: CBC: WBC 9.7, hemoglobin 8, hematocrit 28.4, and the platelet count 528. Chemistry: Sodium 140, potassium is 4, BUN is 13, and creatinine is 1. ProBNP was 1027. The INR was 1.27. CTA of the chest did not show any pulmonary embolism. There is eiqnajqd-dx-qdmmr sized pericardial effusion. There was no mediastinal lymphadenopathy, which is unchanged compared to previous CT scan. There are bilateral pulmonary fibrosis, left worse than the right. IMPRESSION: 1. Xpfhb-xy-nnjtxak hypoxic respiratory failure. 2. Acute exacerbation of chronic obstructive pulmonary disease. 3. Congestive heart failure, consider pulmonary edema. 4. Moderate sized pericardial effusion. 5. Dyspnea. 6. Idiopathic pulmonary fibrosis. 6. Bronchiectasis. RECOMMENDATION: 1. Continue Lasix per Dr. Plascencia. 2. Xopenex and ipratropium nebulizer. 3. Brovana, budesonide nebulizer. 4. Methylprednisolone IV. 5. We will follow up labs and chest radiograph. 6. Supplemental oxygen. Dr. Villarreal, thank you for involving me in the care of Mr. Mota. TRANSINT:[id number] Voice Confirmation ID: [id number] DOCUMENT ID: [id number] HANH CHAMBERLAIN MD at 1406 CC: HUGO VILLARREAL DO [id number] DICTATION DATE: 05/15/17 1520 COMMUNICATION CONSULTANT: 05/15/17 1651 DIS IN 05/19/17 [facility] [address] [place] [address]
== END 2017-05-19 18:04 | disposition home health service (06) | DRG 314 ==
LOC: D.ER 15:02 → D.M2 17:41
PROVIDERS: Emergency Medicine; Family Medicine; Internal Medicine Cardiovascular Disease; Internal Medicine Pulmonary Disease; Physician Assistant Medical; ADMIT Family Medicine
DX: I31.3 Pericardial effusion (noninflammatory) (principal); J96.21 Acute and chronic respiratory failure with hypoxia; I50.31 Acute diastolic (congestive) heart failure; J44.1 Chronic obstructive pulmonary disease with (acute) exacerbation; E78.5 Hyperlipidemia, unspecified; G89.29 Other chronic pain; F11.90 Opioid use, unspecified, uncomplicated; D64.9 Anemia, unspecified; J84.10 Pulmonary fibrosis, unspecified; I11.0 Hypertensive heart disease with heart failure; K22.70 Barrett's esophagus without dysplasia; M81.0 Age-related osteoporosis without current pathological fracture; Z86.73 Personal history of transient ischemic attack (TIA), and cerebral infarction without residual deficits; E87.5 Hyperkalemia; E03.9 Hypothyroidism, unspecified; F31.9 Bipolar disorder, unspecified

== ENCOUNTER → 2017-08-31 16:46 | Outpatient (CLI) | payer MEDICARE ==
[2017-05-18 13:16] VITALS: BMI 27.1
[~2017-08-31 16:46] MED LIST changes: +LASIX40 MG PO; +STERAPRED DS 1210 MG PO
[2017-09-01 10:05] LABS: BASOPHILS 0.4 % (0-2); EOSINOPHILS 1.4 % (0-7); HEMATOCRIT 38.1 % (42.0-54.0); IMMATURE GRANULOCYTES 0.4 % (0-5); LYMPHOCYTES 12.9 % (15-50); MCH 25.7 pg (26.0-34.0); MCHC 28.9 g/dL (31.0-37.0); MEAN PLATELET VOLUME 9.8 fL (7.4-10.4); NEUTROPHILS 79.9 % (40-80); RBC 4.28 10x6/uL (4.20-6.10); RDW 16.9 % (11.5-14.5); WBC 13.1 10x3/uL (4.8-10.8)
[2017-09-01 10:07] LABS: PLATELET COUNT 362 10x3/uL (130-400)
[2017-09-01 11:29] LABS: ERYTHROCYTE SEDIMENTATION RATE 3 mm/hr (0-20)
== END | disposition home or self-care (01) ==
LOC: D.LABREF 16:46
PROVIDERS: Orthopaedic Surgery Foot and Ankle Surgery
DX: M25.572 Pain in left ankle and joints of left foot (principal)